=== PATIENT | male | born 2000 | race Caucasian/White ===

== ENCOUNTER 2023-05-17 10:27 | Emergency (ER) | payer OTHER ==
[~2023-05-17] VITALS: Ht 195.6 cm; Wt 109.0 kg
[2023-05-17 10:30] VITALS: BP 127/64; TEMP 97.2; O2SAT 97
[2023-05-17] MEDS ORDERED: HYDR50TA70 PO (13:17)
== END 2023-05-17 13:30 | disposition home or self-care (01) ==
LOC: M ED 10:27
DX: F41.9 Anxiety disorder, unspecified (principal)

== ENCOUNTER 2023-09-27 17:15 | Emergency (ER) | payer OTHER ==
[~2023-09-27] VITALS: Ht 193 cm; Wt 110.1 kg
[~2023-09-27 17:15] MED LIST: HYDR50TA70 PO
[2023-09-27] MEDS ORDERED: BENZ200C70 PO (19:47)
[2023-09-27] MEDS ORDERED: FLON1SPR NARES (19:47)
[2023-09-27] MEDS ORDERED: ONDA4TAB6 PO (19:47)
[2023-09-27] MEDS ORDERED: CLAR10CA3 PO (19:47)
[2023-09-27 20:09] VITALS: BP 123/65; TEMP 98; O2SAT 99
== END 2023-09-27 20:11 | disposition home or self-care (01) ==
LOC: M ED 17:15
DX: B34.2 Coronavirus infection, unspecified (principal); R19.7 Diarrhea, unspecified; R11.10 Vomiting, unspecified; J45.909 Unspecified asthma, uncomplicated; Z79.899 Other long term (current) drug therapy

== ENCOUNTER 2025-02-05 03:27 | Emergency (ER) | payer OTHER ==
[~2025-02-05] VITALS: Ht 193 cm; Wt 103.9 kg
[~2025-02-05 03:27] MED LIST changes: +BENZ200C70 PO; +CLAR10CA3 PO; +FLON1SPR NARES; +ONDA-282 PO
[2025-02-05 03:28] VITALS: BP 143/97; TEMP 97.7; O2SAT 98
[2025-02-05] MEDS ORDERED: SERTRALINE (03:31)
[2025-02-05] MEDS: SERTRALINE 100 MG TAB PO ONE (04:32)
[2025-02-05] MEDS ORDERED: ZOLO100T PO (05:06)
== END 2025-02-05 05:11 | disposition home or self-care (01) ==
LOC: M ED 03:27
DX: F19.239 Other psychoactive substance dependence with withdrawal, unspecified (principal); F41.9 Anxiety disorder, unspecified; F10.10 Alcohol abuse, uncomplicated; Z79.899 Other long term (current) drug therapy

== ENCOUNTER 2025-04-23 12:01 | Emergency (ER) | payer OTHER ==
[~2025-04-23] VITALS: Ht 193 cm; Wt 110.0 kg
[~2025-04-23 12:01] MED LIST changes: +SERTRALINE; +ZOLO100T PO
[2025-04-23 12:03] VITALS: TEMP 97.4
[2025-04-23] MEDS ORDERED: [UNRECOGNIZED DRUG - CODE] PO (12:21)
[2025-04-23] MEDS ORDERED: MELA2.5C4 PO (12:21)
[2025-04-23] MEDS ORDERED: APPL300T4 PO (12:21)
[2025-04-23 12:48] LABS: BASO # 0.0 10^3/uL (0.0-0.2); BASO % 0.5 % (0.0-1.0); EOS # 0.2 10^3/uL (0.0-0.5); EOS % 2.4 % (0.0-3.0); LYMPH # 1.2 10^3/uL (1.5-5.0); LYMPH % 15.9 % (24.0-44.0); MONO # 0.8 10^3/uL (0.0-0.8); MONO % 10.2 % (2.0-8.0); NEUTROPHILS # 5.5 10^3/uL (1.5-8.5); NEUTROPHILS % 70.7 % (36.0-66.0); PLATELET COUNT, AUTOMATED 237 10^3/uL (150-450)
[2025-04-23 13:13] LABS: CALCIUM LEVEL 9.5 MG/DL (8.5-10.1); CARBON DIOXIDE LEVEL 30 MMOL/L (20-31); CHLORIDE LEVEL 104 MMOL/L (98-107); CK-MB VALUE MASS < 1.0 NG/ML (<3.6); CREATININE FOR GFR 1.04 MG/DL (0.70-1.30); GLOMERULAR FILTRATION RATE > 90.0 (>60); POTASSIUM SERUM 4.2 MMOL/L (3.5-5.1); SODIUM LEVEL 142 MMOL/L (136-145)
[2025-04-23 13:19] LABS: CPK CREATINE PHOSPHOKINASE 67 U/L (46-171)
[2025-04-23] MEDS ORDERED: ISOVUE-370 76% 100 ML VIAL As Ordered ONE (13:37)
[2025-04-23 14:03] LABS: CK-MB VALUE MASS < 1.0 NG/ML (<3.6)
[2025-04-23 14:11] LABS: CPK CREATINE PHOSPHOKINASE 66 U/L (46-171)
[2025-04-23 14:12] LABS: INR 1.14
[2025-04-23 14:32] VITALS: BP 121/63; O2SAT 98
== END 2025-04-23 14:34 | disposition home or self-care (01) ==
LOC: M ED 12:01
DX: R07.89 Other chest pain (principal); J45.909 Unspecified asthma, uncomplicated; R94.31 Abnormal electrocardiogram [ECG] [EKG]; Z79.810 Long term (current) use of selective estrogen receptor modulators (SERMs); Z79.899 Other long term (current) drug therapy
CPT/HCPCS: 36415; 71046; 71275; 80048; 82550; 82553; 84484; 85025; 85610; 93005; 93041; 99284; Q9967

== ENCOUNTER → 2025-05-26 | Outpatient (CLI) | payer OTHER ==
[~2025-05-26] MED LIST changes: +APPL300T4 PO; +MELA2.5C4 PO; +[UNRECOGNIZED DRUG - CODE] PO
== END ==
LOC: M EKG 08:08
PROVIDERS: ATTEND Internal Medicine Cardiovascular Disease
DX: R07.9 Chest pain, unspecified (principal)